=== PATIENT | male | born 1955 | race African-American/Black ===

== ENCOUNTER → 2018-12-05 | Outpatient (CLI) | payer OTHER ==
[~2018-12-05] MED LIST: LORTAB 5/500 501 TAB PO; MOTRIN 800800 MG/TAB PO; NO HOME MEDICATIONS; ONE DAILY1 TA2 PO; VICODIN 5/5001 UDTAB PO; [UNRECOGNIZED DRUG - OTHER]
== END ==
LOC: COL.RAD 11-24 12:30
DX: M51.17 Intervertebral disc disorders with radiculopathy, lumbosacral region (principal); M12.88 Other specific arthropathies, not elsewhere classified, other specified site; M48.061 Spinal stenosis, lumbar region without neurogenic claudication; M43.16 Spondylolisthesis, lumbar region

== ENCOUNTER → 2018-12-26 | Outpatient (CLI) | payer OTHER | LOC: COL.RAD 16:47 | DX: M51.16 Intervertebral disc disorders with radiculopathy, lumbar region (principal); M43.16 Spondylolisthesis, lumbar region ==

== ENCOUNTER 2019-01-18 10:30 | Outpatient (RCR) | payer OTHER | END 2019-03-06 15:32 | disposition home or self-care (01) | LOC: WSPT 10:30 | DX: M43.16 Spondylolisthesis, lumbar region (principal); M48.062 Spinal stenosis, lumbar region with neurogenic claudication; Z87.891 Personal history of nicotine dependence ==

== ENCOUNTER → 2019-05-19 | Outpatient (CLI) | payer OTHER | LOC: COL.RAD 09:02 | DX: M43.16 Spondylolisthesis, lumbar region (principal); M48.062 Spinal stenosis, lumbar region with neurogenic claudication; Z98.1 Arthrodesis status ==

== ENCOUNTER 2020-06-14 10:00 | Outpatient (RCR) | payer MEDICARE | END 2020-07-08 11:39 | disposition home or self-care (01) | LOC: WSPT 10:00 | DX: M43.16 Spondylolisthesis, lumbar region (principal); M48.062 Spinal stenosis, lumbar region with neurogenic claudication; Z98.1 Arthrodesis status ==